=== PATIENT | female | born 1980 | race African-American/Black ===

== ENCOUNTER 2019-07-22 06:40 | Day surgery (SDC) | payer OTHER ==
[~2019-07-22] VITALS: Ht 165.1 cm; Wt 78.9 kg
[~2019-07-22 06:40] MED LIST: ALPR1TAB2 PO; LEXAPRO20 MG PO; METR500T PO; MIRT15TA PO; SUMA100T4 PO; TOPI100T42 PO; TOPI200T25 PO; TRAZ-118 PO; ceFAZolin SODIUM IV Push 1 GM VIAL. IVP PRN
[2019-07-22] MEDS ORDERED: LIDOCAINE 2% PF 5 ML VIAL. ONE (07:10)
[2019-07-22] MEDS ORDERED: PROPOFOL 20 ML IV ONE (07:10)
[2019-07-22] MEDS ORDERED: DEXAMETHASONE SOD PHOS 4 MG/ML VIAL ONE ×2 (07:10→08:38)
[2019-07-22] MEDS ORDERED: ONDANSETRON PF 4 MG/2 ML VIAL. ONE (07:10)
[2019-07-22] MEDS ORDERED: ROCURONIUM 50 MG/5 ML VIAL. ONE (07:11)
[2019-07-22] MEDS ORDERED: MORPHINE SULFATE 2 MG/ML VIAL. IV PRN (07:30)
[2019-07-22] MEDS ORDERED: fentaNYL PF VIAL 100 MCG/2 ML VIAL IV PRN ×2 (07:30)
[2019-07-22] MEDS ORDERED: SCOPOLAMINE 1.5MG PATCH. TD ONE (07:30)
[2019-07-22] MEDS ORDERED: HYDROmorphone 2 MG/ML VIAL IV PRN (07:30)
[2019-07-22] MEDS ORDERED: PROCHLORPERAZINE 10 MG/2 ML VIAL. IV PRN (07:30)
[2019-07-22] MEDS ORDERED: IV RINGERS,LACTATED 1000ML 1,000 ML IV SCH ×2 (07:30)
[2019-07-22] MEDS ORDERED: BUPIVACAINE-EPI 0.25%-1:200000 MPF 30 ML VIAL. ONE (07:47)
[2019-07-22] MEDS ORDERED: SURGICEL HEMOSTAT 4X8 EACH. ONE (07:47)
[2019-07-22] MEDS ORDERED: FAMOTIDINE 20 MG/2 ML VIAL ONE (08:12)
[2019-07-22] MEDS ORDERED: MIDAZOLAM HCL/PF 2 MG/2 ML VIAL. ONE (08:13)
[2019-07-22] MEDS ORDERED: KETOROLAC 30 MG/ML VIAL. ONE ×2 (08:13→08:38)
[2019-07-22] MEDS ORDERED: fentaNYL PF VIAL 100 MCG/2 ML VIAL ONE (08:13)
[2019-07-22] MEDS ORDERED: GLYCOPYRROLATE 1 MG/5 ML VIAL. ONE (09:11)
[2019-07-22] MEDS ORDERED: NEOSTIGMINE METHYLSULFATE 5 MG/5 ML SYRINGE. ONE (09:11)
--- NOTE | 2019-07-22 09:24 | PDOC ---
BRIEF OPERATIVE NOTE Date: Jul 22, 2019 Pre-Op Diagnosis YULIET Cyst Post-Op Diagnosis ROV Cyst Procedure Performed [facility] ROV Cystectomy Surgeon Dr. Wills Anesthesia Type: General Blood Loss 5 ml Specimens Obtained ROV Cyst wall Findings ROV cyst 3 cm size; nml fallopian tubes and nml YULIET Complications none Operative Note see dictation DEVONTE WILLS Jr, MD Jul 22, 2019 09:24
--- NOTE | 2019-07-22 09:25 | DISCH ---
DISCHARGE INSTRUCTIONS Condition on Discharge Condition on Discharge: Stable Activity After Discharge Activity Instructions for Disc: Activity as tolerated Lifting Instructions after Dis: No heavy lifting Driving Instructions after Dis: Do not drive today Diet after Discharge Diet after Discharge: Regular Contacting the DRNick after DC Call your doctor for: Concerns you may have Follow-Up Follow up with: Dr. Wills in 1 week. DEVONTE WILLS Jr, MD Jul 22, 2019 09:25
[2019-07-22] MEDS ORDERED: OXYC-325 PO (10:16)
--- NOTE | 2019-07-22 10:25 | OP ---
DATE OF SURGERY: PREOPERATIVE DIAGNOSIS: Left ovarian cyst. POSTOPERATIVE DIAGNOSIS: Right ovarian cyst. PROCEDURE: Laparoscopic right ovarian cystectomy. SURGEON: Devonte Wills MD. ANESTHESIA: GETA. ESTIMATED BLOOD LOSS: 5 mL. COMPLICATIONS: None. FINDINGS: Right ovarian cyst 3 cm size, normal fallopian tubes bilaterally, normal left ovary. SUMMARY: A 39-year-old with pelvic pain and left ovarian cyst per pelvic ultrasound that was unresolving. The patient was counseled on risks, benefits and expectations of laparoscopic left ovarian cystectomy and voiced clear understanding to proceed. DESCRIPTION OF PROCEDURE: The patient was taken to surgery suite and placed in dorsal lithotomy position. She was prepped with Betadine solution for vaginal prep and ChloraPrep for abdominal prep. After adequate anesthesia, sponge stick was placed vaginally. Attention was now placed on abdomen. A 0.25% Marcaine with epinephrine was injected just below the umbilicus. A scalpel was used to make an incision just below the umbilicus. A Veress needle was then placed through the infraumbilical incision site. The abdomen was allowed to insufflate up to 1.5 liters CO2 gas. The Veress needle was then removed, 5 mm trocar was placed. The scope was positioned. There were some abdominal wall adhesions. The left ovary and fallopian tube appeared normal. The right ovary demonstrated about 3 cm complex cyst. The right fallopian tube appeared normal. Injection was made in the left lower quadrant of 0.25% Marcaine with epinephrine in which a scalpel was utilized to make an incision and a 5 mm and 8 mm trocars were placed respectively. With aid of Fermin graspers and EnSeal device, the right ovarian cyst wall was excised. The remaining cyst wall was cauterized and was hemostatic. Suction irrigation was utilized for good hemostasis. A small amount of normal saline was left in posterior cul-de-sac. The abdominal wall adhesion was taken down with the EnSeal device. The trocars were then removed under direct visualization. The abdomen was allowed to deflate as much as possible along with mechanical manipulation. The 3 skin incisions were reapproximated using 4-0 Vicryl suture in subcuticular manner. Sponge stick was removed. The patient tolerated the procedure well and was taken to recovery room in stable condition. Sponge and needle count correct x 3. DEVONTE WILLS MD DR: COLIN/isabel JOB#: [id number] / [id number]
[2019-07-22] MEDS ORDERED: oxyCODONE/APAP 5/325 1 TAB TABLET PO ONE ×2 (10:30)
[2019-07-22 11:00] VITALS: BP 107/67
--- NOTE | 2019-07-26 16:06 | PATHOLOGY ---
[facility] Accession Number: [id number] . 01 Material submitted: . ovary - RIGHT OVARIAN CYST WALL. Modifiers: right, wall . 01 Clinical history: . Right ovarian cyst (verified with hospital) . 02 Diagnosis: Segments of ovarian tissue, right ovarian cyst wall: - Partially luteinized follicular cyst. ([facility] 07/26/2019) . [facility] 07/26/2019 0906 Local . 02 Comment: There is no evidence of endometriosis. There is no evidence of malignancy. ([facility] 07/26/2019) . 02 Electronically signed: . Tyson Prince MD, Pathologist NPI- [id number] . 01 Gross description: . The specimen is received in formalin, labeled "Romel Holloway, right ovarian cyst wall". Received are two segments of cedeno-dorantes to bright orange tissue measuring 1.8 x 1.0 x 0.5 cm in aggregate dimensions. The specimen is submitted entirely in cassette A1. ([facility]; 07/23/2019) QA/[facility] 07/23/2019 1644 Local . 02 Pathologist provided ICD-10: N83.01 . 02 CPT . 941873 Specimen Comment: A courtesy copy of this report has been sent to [phone], [phone] Specimen Comment: [id number] Specimen Comment: Report sent to / DR KNOX Performed at: 01 [facility] [address], [place] [id number] MD Jeff Adkins MD Phone: [phone] Performed at: 02 [facility] [address], [place] [id number] MD Tyson Prince MD Phone: [phone]
[2019-07-26] MEDS ORDERED: SENN1TAB99 PO (19:05)
[2019-07-26] MEDS ORDERED: CEPH-264 PO (19:06)
[2019-07-26] MEDS ORDERED: ONDA4TAB12 PO (19:06)
[2019-07-26] MEDS ORDERED: ASPI-630 PO (19:06)
[2019-07-26] MEDS ORDERED: HYDR-3164 PO (19:20)
== END 2019-07-22 11:48 | disposition home or self-care (01) ==
LOC: SURG 06:40
PROVIDERS: ATTEND Obstetrics & Gynecology
DX: N83.201 Unspecified ovarian cyst, right side (principal); G43.909 Migraine, unspecified, not intractable, without status migrainosus; G47.30 Sleep apnea, unspecified; F41.9 Anxiety disorder, unspecified; F32.9 Major depressive disorder, single episode, unspecified; Z87.891 Personal history of nicotine dependence; Z90.710 Acquired absence of both cervix and uterus; Z98.51 Tubal ligation status
CPT/HCPCS: 58662; A7015; J0690; J0780; J1100; J1885; J2001; J2250; J2405; J2704; J2710; J3010; J3490; J7030; J7120